=== PATIENT | male | born 1995 ===

== ENCOUNTER 2019-03-22 06:12 | Inpatient (IN) ==
[2019-03-22] MEDS ORDERED: BUPIVACAINE MPF 0.25% 30 ML VIAL ONE (07:09)
[2019-03-22] MEDS ORDERED: LIDOCAINE 1%/EPI INJ 20 ML VIAL ONE (07:09)
[2019-03-22] MEDS ORDERED: LACTATED RINGERS 1,000 ML IV ONE ×2 (07:46→09:26)
[2019-03-22] MEDS: LACTATED RINGERS 1,000 ML IV SCH ×2 (08:00→10:24)
[2019-03-22] MEDS ORDERED: ACETAMINOPHEN 325 MG TABLET PO PRN (08:42)
[2019-03-22] MEDS ORDERED: MORPHINE 4 MG/1 ML VIAL IV PRN (08:42)
[2019-03-22] MEDS ORDERED: ONDANSETRON 4 MG/2 ML VIAL IV PRN (08:42)
[2019-03-22] MEDS ORDERED: SEVOFLURANE 1 UNIT/15 MINUTE INH ONE (09:24)
[2019-03-22] MEDS ORDERED: MIDAZOLAM 2 MG/2 ML VIAL ONE (09:24)
[2019-03-22] MEDS ORDERED: LIDOCAINE 2% 5 ML VIAL ONE (09:24)
[2019-03-22] MEDS ORDERED: PROPOFOL 200 MG/20 ML VIAL IV ONE (09:24)
[2019-03-22] MEDS ORDERED: fentaNYL 100 MCG/2 ML VIAL ONE ×2 (09:24→09:25)
[2019-03-22] MEDS ORDERED: ONDANSETRON 4 MG/2 ML VIAL ONE (09:26)
[2019-03-22] MEDS ORDERED: DEXAMETHASONE 4 MG/1 ML VIAL ONE (09:26)
[2019-03-22] MEDS ORDERED: ROCURONIUM 100 MG/10 ML VIAL IV ONE (09:26)
[2019-03-22] MEDS ORDERED: KETOROLAC 30 MG/1 ML VIAL ONE (09:26)
[2019-03-22] MEDS ORDERED: NEOSTIGMINE 10 MG/10 ML VIAL ONE (09:26)
[2019-03-22] MEDS ORDERED: GLYCOPYRROLATE 0.4 MG/2 ML VIAL ONE (09:26)
[2019-03-22] MEDS: cefOXitin 2,000 MG in SYRINGE 1 EACH IV SCH ×2 (11:57→17:11)
[2019-03-22] MEDS: PANTOPRAZOLE 40 MG TABLET PO SCH (11:57)
[2019-03-23] MEDS: cefOXitin 2,000 MG in SYRINGE 1 EACH IV SCH ×2 (01:08→09:24)
[2019-03-23] MEDS: PANTOPRAZOLE 40 MG TABLET PO SCH (09:23)
[2019-03-23 18:46] VITALS: BP 106/56
== END 2019-03-23 16:45 | disposition home or self-care (01) | DRG 343 ==
LOC: N.ED 06:12 → N.3E 07:40 → N.EDINP 08:42 → N.3E 09:06
PROVIDERS: ADMIT Surgery; ATTEND Surgery